=== PATIENT | male | born 1955 | race Caucasian/White ===

== ENCOUNTER 2020-04-29 14:45 | Emergency (ER) | payer OTHER ==
[~2020-04-29] VITALS: Ht 177.8 cm; Wt 127.9 kg
[~2020-04-29 14:45] MED LIST: LEVSOD100; LEVSOD125 PO; LISINOPRIL PO; Lasix20 MG PO; MAGNESIUM PO; MECL25 PO; METO2.5 PO; POTCHL20ER PO; SIMV40 PO
[2020-04-29 15:32] LABS: BASOPHILS ABSOLUTE AUTO 0.09 K/mm3 (0.00-0.23); BASOPHILS PERCENT AUTO 1 % (0-2); EOSINOPHILS ABSOLUTE AUTO 0.22 K/mm3 (0.00-0.68); EOSINOPHILS PERCENT AUTO 3 % (0-6); Hematocrit 49.5 % (37.0-53.0); Hemoglobin 16.9 g/dL (13.5-17.5); IMMATURE GRAN ABSOLUTE AUTO 0.02 K/mm3 (0.00-0.10); IMMATURE GRAN PERCENT AUTO 0 % (0-1); LYMPHOCYTES ABSOLUTE AUTO 2.17 K/mm3 (0.84-5.20); LYMPHOCYTES PERCENT AUTO 25 % (21-46); MONOCYTES ABSOLUTE AUTO 0.86 K/mm3 (0.16-1.47); MONOCYTES PERCENT AUTO 10 % (4-13); Mean Corpuscular HGB Conc 34.1 g/dL (31.5-36.5); Mean Corpuscular Volume 94 fL (80-100); Mean Platelet Volume 9.7 fL (9.1-12.4); NEUTROPHILS ABSOLUTE AUTO 5.49 K/mm3 (1.96-9.15); NEUTROPHILS PERCENT AUTO 62 % (41-73); Platelet Count 239 K/mm3 (150-400); RDW Coefficient Variation 12.7 % (11.7-14.2); RDW Standard Deviation 43.9 fL (35.1-46.3); Red Blood Cell Count 5.28 M/mm3 (4.30-5.90); White Blood Cell Count 8.85 K/mm3 (4.00-11.30)
[2020-04-29 15:48] LABS: Alanine Aminotransfer (ALT/SGP 52 U/L (12-78); Albumin, Blood 3.2 g/dL (3.4-5.0); Albumin/Globulin Ratio 0.6 (0.8-1.8); Alk Phos 135 U/L (50-136); Anion Gap 5 mmol/L (6-16); Aspartate Aminotrans (AST/SGOT 55 U/L (12-37); Bilirubin, Total 1.1 mg/dL (0.1-1.0); Blood Urea Nitrogen 20 mg/dL (8-24); Bun/Creatinine Ratio 15.9 (12.0-20.0); CO2, Blood 29 mmol/L (21-32); Chloride, Blood 105 mmol/L (98-108); Creatinine, Blood 1.26 mg/dL (0.60-1.20); Glomerular Filtration Rate >60 (60-); Glucose, Blood 97 mg/dL (70-99); Magnesium, Blood 2.2 mg/dL (1.6-2.4); Potassium, Blood 4.3 mmol/L (3.5-5.5); Sodium, Blood 139 mmol/L (136-145); Total Protein, Blood 8.2 g/dL (6.4-8.2)
== END 2020-04-29 16:48 | disposition home or self-care (01) ==
LOC: ER 14:45
PROVIDERS: Emergency Medicine
DX: I48.92 Unspecified atrial flutter (principal); K62.5 Hemorrhage of anus and rectum; Z79.899 Other long term (current) drug therapy
CPT/HCPCS: 36415; 80053; 83735; 85025; 93005; 93010; 99284-25

== ENCOUNTER 2020-05-04 04:16 | Inpatient (IN) | payer OTHER, MEDICARE ==
[~2020-05-04] VITALS: Ht 177.8 cm; Wt 130.0 kg
[2020-05-04] MEDS ORDERED: Colace100 MG PO (04:40)
[2020-05-04] MEDS ORDERED: ATEN25 PO (04:40)
[2020-05-04] MEDS ORDERED: ZESTRIL40 M1 PO (04:40)
[2020-05-04 04:41] LABS: BASOPHILS ABSOLUTE AUTO 0.05 K/mm3 (0.00-0.23); BASOPHILS PERCENT AUTO 1 % (0-2); EOSINOPHILS ABSOLUTE AUTO 0.29 K/mm3 (0.00-0.68); EOSINOPHILS PERCENT AUTO 3 % (0-6); Hematocrit 45.7 % (37.0-53.0); Hemoglobin 15.1 g/dL (13.5-17.5); IMMATURE GRAN ABSOLUTE AUTO 0.04 K/mm3 (0.00-0.10); IMMATURE GRAN PERCENT AUTO 0 % (0-1); LYMPHOCYTES ABSOLUTE AUTO 2.52 K/mm3 (0.84-5.20); LYMPHOCYTES PERCENT AUTO 27 % (21-46); MONOCYTES ABSOLUTE AUTO 0.94 K/mm3 (0.16-1.47); MONOCYTES PERCENT AUTO 10 % (4-13); Mean Corpuscular Volume 97 fL (80-100); Mean Platelet Volume 9.6 fL (9.1-12.4); NEUTROPHILS ABSOLUTE AUTO 5.54 K/mm3 (1.96-9.15); NEUTROPHILS PERCENT AUTO 59 % (41-73); Platelet Count 204 K/mm3 (150-400); RDW Coefficient Variation 13.3 % (11.7-14.2); RDW Standard Deviation 47.8 fL (35.1-46.3); Red Blood Cell Count 4.72 M/mm3 (4.30-5.90); White Blood Cell Count 9.38 K/mm3 (4.00-11.30)
[2020-05-04] MEDS ORDERED: XARELTO20 MG PO (04:41)
[2020-05-04] MEDS ORDERED: LEVOTHYROXINE112 MC3 PO (04:41)
[2020-05-04] MEDS ORDERED: POTCHL20ER PO (04:41)
[2020-05-04] MEDS ORDERED: ATOR40TA PO (04:42)
[2020-05-04] MEDS ORDERED: FURO40 PO (04:42)
[2020-05-04] MEDS ORDERED: THERA-D2000 UNIT PO (04:43)
[2020-05-04] MEDS ORDERED: FISH OIL 1,2001 EAC1 PO (04:43)
[2020-05-04 05:05] LABS: Free Thyroxine 1.02 ng/dL (0.70-1.60); Troponin I 0.019 ng/mL (0.000-0.040)
[2020-05-04 05:06] LABS: Albumin, Blood 3.2 g/dL (3.4-5.0); Albumin/Globulin Ratio 0.7 (0.8-1.8); Bilirubin, Total 1.3 mg/dL (0.1-1.0); Bun/Creatinine Ratio 15.4 (12.0-20.0); Creatinine, Blood 2.28 mg/dL (0.60-1.20); Globulin, Blood 4.7 g/dL (2.2-4.0); Potassium, Blood 4.1 mmol/L (3.5-5.5); Total Protein, Blood 7.9 g/dL (6.4-8.2)
[2020-05-04 05:09] LABS: Triiodothyronine, Free 1.28 pg/mL (2.18-3.98)
[2020-05-04 05:10] LABS: Thyroid Stimulating Hormone 1.85 uIU/mL (0.360-4.800)
[2020-05-04 06:27] LABS: Source, Urine Voided
[2020-05-04 06:32] LABS: Appearance, Urine Clear (Clear); Bilirubin, Urine Neg (Neg); Blood, Urine 1+ (Neg); Color, Urine Yellow (P-Yellow); Glucose Qualitative, Urine Neg (Neg); Ketones, Urine Neg (Neg); Leukocyte Esterase, Urine 1+ (Neg); Nitrite, Urine Neg (Neg); Protein, Urine 3+ (Neg); Urobilinogen, Urine NORM (Normal)
[2020-05-04 06:44] LABS: Bacteria Few /hpf; Red Blood Cells, Urine 0-2 /hpf (0-2); Squamous Epithelial Cells Rare /hpf (Few)
--- NOTE | 2020-05-04 09:58 | NUR ---
Echocardiogram completed.
[2020-05-04] MEDS ORDERED: Aspirin EC81 MG PO (17:36)
[2020-05-05 04:12] LABS: BASOPHILS ABSOLUTE AUTO 0.04 K/mm3 (0.00-0.23); BASOPHILS PERCENT AUTO 0 % (0-2); EOSINOPHILS ABSOLUTE AUTO 0.11 K/mm3 (0.00-0.68); EOSINOPHILS PERCENT AUTO 1 % (0-6); Hematocrit 40.8 % (37.0-53.0); Hemoglobin 13.4 g/dL (13.5-17.5); IMMATURE GRAN ABSOLUTE AUTO 0.04 K/mm3 (0.00-0.10); IMMATURE GRAN PERCENT AUTO 0 % (0-1); LYMPHOCYTES ABSOLUTE AUTO 1.43 K/mm3 (0.84-5.20); LYMPHOCYTES PERCENT AUTO 16 % (21-46); MONOCYTES ABSOLUTE AUTO 0.92 K/mm3 (0.16-1.47); MONOCYTES PERCENT AUTO 10 % (4-13); Mean Corpuscular HGB 31.4 pg (26.0-34.0); Mean Corpuscular HGB Conc 32.8 g/dL (31.5-36.5); Mean Corpuscular Volume 96 fL (80-100); Mean Platelet Volume 9.9 fL (9.1-12.4); NEUTROPHILS ABSOLUTE AUTO 6.62 K/mm3 (1.96-9.15); NEUTROPHILS PERCENT AUTO 72 % (41-73); Platelet Count 181 K/mm3 (150-400); RDW Coefficient Variation 13.3 % (11.7-14.2); RDW Standard Deviation 47.2 fL (35.1-46.3); Red Blood Cell Count 4.27 M/mm3 (4.30-5.90); White Blood Cell Count 9.16 K/mm3 (4.00-11.30)
[2020-05-05 04:48] LABS: Albumin, Blood 2.7 g/dL (3.4-5.0); Albumin/Globulin Ratio 0.7 (0.8-1.8); Bilirubin, Total 1.6 mg/dL (0.1-1.0); Bun/Creatinine Ratio 18.1 (12.0-20.0); Calcium, Blood 8.6 mg/dL (8.5-10.1); Creatinine, Blood 1.66 mg/dL (0.60-1.20); Potassium, Blood 4.6 mmol/L (3.5-5.5); Total Protein, Blood 6.7 g/dL (6.4-8.2)
--- NOTE | 2020-05-05 07:44 | NUR ---
SHIFT SUMMARY START OF SHIFT PT WAS VERY ANXIOUS AND SOB. PT WAS PLACED ON 2LPM VIA NC AND TRANSFERRED TO RECLINER CHAIR. PT STATED HE WAS UNABLE TO LAY FLAT OR GET COMFORTABLE IN THE BED DUE TO INCREASED DIFFICULTY BREATHING AND CHEST TIGHTENING. PT BEGAN TO RELAX ONCE COMFORTABLE IN RECLINER AND PUT ON HOME CPAP. SOB DECREASED AND PT'S ANXIETY DECREASED. O2 SATS FELL TO ABOUT 85% AT THE LOWEST AND QUICKLY RETURNED TO LOW 90'S WHEN ON O2. BP WAS ELEVATED WHEN PT WAS ANXIOUS UP TO 143 SYSTOLIC AND AROUND 100 SYSTOLIC T/O THE REST OF THE SHIFT. HR WAS 50'S TO 60'S. PT SLEPT MOST OF THE NIGHT.
--- NOTE | 2020-05-05 14:32 | NUR ---
partial echocardiogram complete
[2020-05-05 16:24] LABS: Phosphorus, Blood 3.6 mg/dL (2.5-4.9)
[2020-05-05 17:27] LABS: Influenza A, PCR NEGATIVE (NEGATIVE); Influenza B, PCR NEGATIVE (NEGATIVE); Resp Syncytial Virus, PCR NEGATIVE (NEGATIVE); SARS-Cov-2 (COVID-19) PCR, MMC NEGATIVE (NEGATIVE)
--- NOTE | 2020-05-05 18:18 | NUR ---
SHIFT SUMMARY PT A&Ox4; CALM AND COOPERATIVE WITH CARE. PT UP IN CHAIR FOR MAJORITY OF SHIFT. PT DENIES PAIN, CHEST PAIN, NAUSEA, AND DIZZINESS. PT HAD EPISODE OF COUGHING AND RESPIRATORY DISTRESS; PLACED ON 3L O2 VIA NC; DR SINGH NOTED; TITRARATED TO RA. SOB WITH EXERTIONS. MULLINS REMOVED; PT HAS VOIDED POST MULLINS REMOVAL . PT CONVERTED IN AND OUT OF AFIB; DR PAZ NOTIFIED. LOW GRADE FEVER NOTED. OTHER VSS. NO OTHER ACUTE CHANGES NOTED. WILL CONTINUE TO MONITOR UNTIL REPORT GIVEN TO ONCOMING RN.
--- NOTE | 2020-05-05 20:00 | NUR ---
PT REPORTS A MILD HEADACHE - DECLINED TYLENOL. PT REPORTS DIZZY/LIGHTHEADED WHEN UP - EDUCATED ON USE OF CALL LIGHT, AND PLACED URINAL AT BEDSIDE. PT IS CURRENTLY RESTING IN THE CHAIR. CONTINUOUS BIOX IN PLACE - SATS WNL. PT IS IN AFIB. PT IS REQUESTING A NICOTINE PATCH TONIGHT - SEE EMAR FOR FOLLOW UP. PT REPORTS SOB WITH EXERTION. PT DENIES ANY CHEST PAIN/DISCOMFORT. FLUIDS AT BEDSIDE.
--- NOTE | 2020-05-05 23:20 | NUR ---
VERIFIED WITH PT - OKAY TO TALK WITH SISTER NERI - PROVIDED UPDATE TO HER VIA TELEPHONE. CALL LIGHT IS WITHIN REACH. PT IS IN RECLINER CHAIR - DENIES ANY NEEDS, OTHER THAN NEEDING TO USE THE URINAL - REQUESTING PRIVACY. PT DENIED FEELING DIZZY/LIGHTHEADED AT THIS TIME.
[2020-05-06 04:09] LABS: BASOPHILS ABSOLUTE AUTO 0.05 K/mm3 (0.00-0.23); BASOPHILS PERCENT AUTO 1 % (0-2); EOSINOPHILS ABSOLUTE AUTO 0.17 K/mm3 (0.00-0.68); EOSINOPHILS PERCENT AUTO 2 % (0-6); Hemoglobin 13.9 g/dL (13.5-17.5); IMMATURE GRAN ABSOLUTE AUTO 0.04 K/mm3 (0.00-0.10); IMMATURE GRAN PERCENT AUTO 1 % (0-1); LYMPHOCYTES ABSOLUTE AUTO 1.55 K/mm3 (0.84-5.20); LYMPHOCYTES PERCENT AUTO 18 % (21-46); MONOCYTES PERCENT AUTO 11 % (4-13); Mean Corpuscular HGB Conc 33.1 g/dL (31.5-36.5); Mean Corpuscular Volume 97 fL (80-100); Mean Platelet Volume 10.2 fL (9.1-12.4); NEUTROPHILS ABSOLUTE AUTO 5.93 K/mm3 (1.96-9.15); NEUTROPHILS PERCENT AUTO 68 % (41-73); Platelet Count 174 K/mm3 (150-400); RDW Coefficient Variation 13.2 % (11.7-14.2); RDW Standard Deviation 47.3 fL (35.1-46.3); Red Blood Cell Count 4.35 M/mm3 (4.30-5.90); White Blood Cell Count 8.74 K/mm3 (4.00-11.30)
[2020-05-06 04:31] LABS: Calcium, Blood 9.1 mg/dL (8.5-10.1); Creatinine, Blood 1.4 mg/dL (0.60-1.20); Potassium, Blood 4.6 mmol/L (3.5-5.5)
--- NOTE | 2020-05-06 05:15 | NUR ---
SHIFT SUMMARY - PT SLEPT IN RECLINER CHAIR WITH HOME CPAP IN PLACE - SLEPT FOR APPX 6-7 HOURS TONIGHT. PT'S HEART RHYTHM WENT FROM AFIB WITH OCCASIONAL SINUS BEATS AT THE BEGINNING OF THE SHIFT TO NSR THROUGHOUT MOST OF THE REMAINDER OF THIS SHIFT. SIRIA TAYLOR REPORTS OCCASIONAL SINUS IMTIAZ - LOW TO MID 50'S. PT HAS BEEN COOPERATIVE WITH CARE, AND HAS USED THE CALL LIGHT APPROPRIATELY. TEA COLORED URINE THIS AM. PT DENIED ANY PAIN OR CHEST DISCOMFORT THROUGHOUT THE NIGHT. CALL LIGHT WITHIN REACH. BED IN LOW POSITION. FLUIDS AT BEDSIDE.
[2020-05-06 15:12] LABS: Magnesium, Blood 1.8 mg/dL (1.6-2.4); Phosphorus, Blood 3.3 mg/dL (2.5-4.9)
--- NOTE | 2020-05-06 18:20 | NUR ---
SHIFT SUMMARY PT A&Ox4; CALM AND COOPERATIVE WITH CARE. ANXIOUS AT TIMES THIS EVENING, USED THERAPUTIC LISTENING AND EDUCATED PT ON BREATHING TECHNIQUES. PT DENIES PAIN, CHEST PAIN, NAUSEA SOB AND DIZZINESS. HR 50-60'S T/O SHIFT. BP STABLE. OTHER VSS. DR QUACH AT BEDSIDE THIS EVENING, PLANS FOR BOWEL PREP AND COLONOSCOPY. OTHER VSS. NO OTHER ACUTE CHANGES NOTED DURING SHIFT. WILL CONTINUE TO MONITOR UNTIL REPORT GIVEN TO ONCOMING RN.
--- NOTE | 2020-05-06 23:18 | NUR ---
FAMILY CALLED PT'S SISTER, NERI, CALLED FOR UPDATE. UPDATED SISTER ON VITAL SIGNS AND OVERALL HOW PT IS FEELING, PT DENIES PAIN, ETC. PT SISTER STATES SHE WILL NOT BE IN TOMORROW BUT PT'S OTHER SISTER WILL BE.
[2020-05-07 04:18] LABS: BASOPHILS ABSOLUTE AUTO 0.05 K/mm3 (0.00-0.23); BASOPHILS PERCENT AUTO 1 % (0-2); EOSINOPHILS ABSOLUTE AUTO 0.33 K/mm3 (0.00-0.68); EOSINOPHILS PERCENT AUTO 4 % (0-6); Hematocrit 39.6 % (37.0-53.0); Hemoglobin 13.2 g/dL (13.5-17.5); IMMATURE GRAN ABSOLUTE AUTO 0.04 K/mm3 (0.00-0.10); IMMATURE GRAN PERCENT AUTO 1 % (0-1); LYMPHOCYTES PERCENT AUTO 21 % (21-46); MONOCYTES ABSOLUTE AUTO 0.91 K/mm3 (0.16-1.47); MONOCYTES PERCENT AUTO 11 % (4-13); Mean Corpuscular HGB 31.4 pg (26.0-34.0); Mean Corpuscular HGB Conc 33.3 g/dL (31.5-36.5); Mean Corpuscular Volume 94 fL (80-100); Mean Platelet Volume 9.8 fL (9.1-12.4); NEUTROPHILS ABSOLUTE AUTO 5.08 K/mm3 (1.96-9.15); NEUTROPHILS PERCENT AUTO 63 % (41-73); Platelet Count 180 K/mm3 (150-400); RDW Coefficient Variation 12.8 % (11.7-14.2); RDW Standard Deviation 44.6 fL (35.1-46.3); Red Blood Cell Count 4.21 M/mm3 (4.30-5.90); White Blood Cell Count 8.11 K/mm3 (4.00-11.30)
[2020-05-07 04:36] LABS: Anion Gap 6 mmol/L (6-16); Blood Urea Nitrogen 19 mg/dL (8-24); Bun/Creatinine Ratio 15.1 (12.0-20.0); CO2, Blood 26 mmol/L (21-32); Calcium, Blood 8.5 mg/dL (8.5-10.1); Chloride, Blood 103 mmol/L (98-108); Creatinine, Blood 1.26 mg/dL (0.60-1.20); Glomerular Filtration Rate >60 (60-); Glucose, Blood 90 mg/dL (70-99); Potassium, Blood 3.8 mmol/L (3.5-5.5); Sodium, Blood 135 mmol/L (136-145)
--- NOTE | 2020-05-07 06:26 | NUR ---
SHIFT SUMMARY NO ACUTE CHANGES THIS SHIFT. PT A&OX4. SP02>90% ON RA, WORE CPAP WHILE SLEEPING. TELEMETRY READS SR. TOWARDS END OF SHIFT, PT CONVERTED BETWEEN A FLUTTER AND SR. HR LOW WAS 45 DURING SHIFT. PT USED URINAL AT BEDSIDE. PT DENIED PAIN. PT SLEPT IN RECLINER MOST OF SHIFT. USES CALL LIGHT APPROPRIATELY. CALL LIGHT IN REACH. PT IN NO DISTRESS AT TIME OF THIS NOTE.
--- NOTE | 2020-05-07 13:50 | NUR ---
CARE COORDINATION REFERRAL - ADMIT: 05/04/20 DISCHARGE: DX: SYMPTPMATIC BRADYCARDIA CC: HARDEEP CALL: RESIDENCE: HOME WITH SPOUSE CAREGIVER: ROHAN LYNN, SPOUSE / PARTNER, DX: HTN, GRAVES' DISEASE, HYPOTHYROIDISM, DM, SLEEP APNEA, SEE LIST DME: BP CUFF, AUTO-PAP EQUIPMENT, AUTO CPAP CCM: NONE HOME HEALTH: NONE SUMMARY: ADMIT: 05/04/20 05/05/20- PER CHART REVIEW WITH DR. SINGH. PT USED HOME CPAP MACHINE LAST NIGHT AND TOLERATED THIS WELL. PT CURRENTLY ON 2L OF OXYGEN. HE HAS HAD A LOW-GRADE TEMP ALL-DAY. KIDNEY FUNCTION IS IMPROVING.POTENTIALLY DISCHARGE EITHER MON OR . -KJW 05/04/20- PER CHART REVIEW WITH DR. SINGH, PT IS WAITING FOR ROOM IN HOSPITAL. HE WILL NEED TO BE ADMITTED FOR A FEW DAYS -KJ
--- NOTE | 2020-05-07 18:15 | NUR ---
SHIFT SUMMARY: PT ALERT AND ORIENTED X4. ON ROOM AIR SATING ABOVE 92%. TELE SHOWING SINUS RHYTHM WITH HR 50'S. DENIES ANY CHEST PAIN. VITAL SIGNS STABLE. NO ACUTE CHANGES. PT IN RECLINER MOST OF THE AFTERNOON AND WAS ABLE TO GO ON A WALK. SISTER IN TO SEE PT. BOWEL MOVEMENTS LOOSE THROUGHOUT THE DAY, NO SIGNS OF BLEEDING. PT STATES HE IS "FEELING GOOD". PLAN FOR COLONOSCOPY TOMORROW WITH BOWEL PREP PRIOR. WILL CONTINUE TO MONITOR AND REPORT OFF.
[2020-05-08 04:00] LABS: BASOPHILS ABSOLUTE AUTO 0.08 K/mm3 (0.00-0.23); BASOPHILS PERCENT AUTO 1 % (0-2); EOSINOPHILS ABSOLUTE AUTO 0.38 K/mm3 (0.00-0.68); EOSINOPHILS PERCENT AUTO 6 % (0-6); Hematocrit 41.7 % (37.0-53.0); Hemoglobin 13.9 g/dL (13.5-17.5); IMMATURE GRAN ABSOLUTE AUTO 0.03 K/mm3 (0.00-0.10); IMMATURE GRAN PERCENT AUTO 0 % (0-1); LYMPHOCYTES ABSOLUTE AUTO 1.54 K/mm3 (0.84-5.20); LYMPHOCYTES PERCENT AUTO 22 % (21-46); MONOCYTES ABSOLUTE AUTO 0.85 K/mm3 (0.16-1.47); MONOCYTES PERCENT AUTO 12 % (4-13); Mean Corpuscular HGB 31.7 pg (26.0-34.0); Mean Corpuscular HGB Conc 33.3 g/dL (31.5-36.5); Mean Corpuscular Volume 95 fL (80-100); Mean Platelet Volume 9.6 fL (9.1-12.4); NEUTROPHILS ABSOLUTE AUTO 4.08 K/mm3 (1.96-9.15); NEUTROPHILS PERCENT AUTO 59 % (41-73); Platelet Count 195 K/mm3 (150-400); RDW Coefficient Variation 12.9 % (11.7-14.2); RDW Standard Deviation 45.5 fL (35.1-46.3); Red Blood Cell Count 4.38 M/mm3 (4.30-5.90); White Blood Cell Count 6.96 K/mm3 (4.00-11.30)
[2020-05-08 04:20] LABS: Anion Gap 5 mmol/L (6-16); Blood Urea Nitrogen 15 mg/dL (8-24); Bun/Creatinine Ratio 12.3 (12.0-20.0); CO2, Blood 28 mmol/L (21-32); Calcium, Blood 8.7 mg/dL (8.5-10.1); Chloride, Blood 104 mmol/L (98-108); Creatinine, Blood 1.22 mg/dL (0.60-1.20); Glomerular Filtration Rate >60 (60-); Glucose, Blood 86 mg/dL (70-99); Potassium, Blood 4.3 mmol/L (3.5-5.5); Sodium, Blood 137 mmol/L (136-145)
--- NOTE | 2020-05-08 06:28 | NUR ---
SHIFT SUMMARY NO ACUTE CHANGES THIS SHIFT. PT A&OX4. SP02>90% ON RA. PT WORE CPAP W/ 2L BLEED IN WHILE SLEEPING. TELEMETRY REAEDS AFIB/SR DURING SHIFT. PT DNEIES PAIN. PT SLEPT IN RECLINER. PT'S SISTER, NERI, CALLED FOR UPDATE THIS EVENING. PT USED URINAL AT BEDSIDE. PT WAS ABLE TO SHOWER AT BEGINNING OF SHIFT. PT STARTED GOLYTLY THIS AM FOR AFTERNOON PROCEDURES. DR. PAZ IN THIS AM TO SEE PT. CALL LIGHT IN REACH. WILL GIVE REPORT TO ONCOMING NURSE.
--- NOTE | 2020-05-08 14:44 | NUR ---
PT TO PROCEDURE VIA STRETCHER.
--- NOTE | 2020-05-08 15:17 | NUR ---
05/08/20 1517 Delisa Hough History, Chart, Medications and Allergies reviewed before start of procedure.Patient confirms NPO status and agrees with scheduled surgery.Patient states colon prep results clear. MAC CASE WITH DR. CROOKS.
--- NOTE | 2020-05-08 16:53 | NUR ---
PT BACK FROM PROCEDURE. ALERT AND ORIENTED X4. PT STATES HE IS FEELING TIRED. VITAL SIGNS STABLE. TYLENOL PROVIDED FOR HEADACHE. ON 3 L O2 SATING ABOVE 92%. SISTER PRESENT IN ROOM. TELE SHOWING AFIB WITH HR IN THE 90'S. WILL CONTINUE TO MONITOR.
--- NOTE | 2020-05-08 18:19 | NUR ---
SHIFT SUMMARY: PT ALERT AND ORIENTED X4. ON 1 L O2 POST UPPER AND LOWER COLONOSCOPY. BASELINE IS ROOM AIR. TITRATING DOWN. TELE SHOWING AFIB WITH HR 100-110'S. VITAL SIGNS REMAIN STABLE. BLE EXTREMITY EDMEA. HOME LASIX RESTARTED THIS EVENING. PT SISTER IN ROOM VISITING. USING CALL LIGHT APPROPRIALY. UP IN ROOM TO USE BATHROOM AND URINAL. RESTING IN RECLINER MOST OF THE DAY. SLEEPING ON AND OFF. ATE FULL DINNER. COMPLAINED OF DRY EYES THIS EVENING AND ARTIFICIAL TEARS ORDERED. BED REMAINED IN LOW LOCKED POSITION. WILL CONTINUE TO MONITOR PT AND REPORT OFF.
--- NOTE | 2020-05-09 04:29 | NUR ---
SHIFT SUMMARY PT WAS IN A RECLINER CHAIR T/O THE NIGHT WITH LEGS ELEVATED. PT IS INDEPENDENT IN ROOM ABLE TO AMBULATE. VITALS WERE STABLE. BP 110'S SYSTOLIC. HR 50-60'S IN SINUS RHYTHM, NO AFIB THIS SHIFT. O2 SATS >90% ON ROOM AIR. PT HAD CPAP ON T/O THE NIGHT WHILE SLEEPING WITH O2 BLEED-IN. PT STATES LEGS ARE MORE EDEMATOUS THAN PREVIOUS DAY. PT HAD A VERY QUIET UNEVENTFUL NIGHT.
--- NOTE | 2020-05-09 10:20 | NUR ---
MORNING UPDATE, ASSUMED CARE FROM NOC RN PT WAS SLEEPING DURING MORNING REPORT BUT SOON WOKE AFTER FOR MEDICATIONS AND BREAKFAST WELL A VISIT WITH DR. PAZ. DR. PAZ STATED SHE WOULD CLEAR HIM FOR DISCHARGE AND THAT A ZOI PATCH WOULD NEED TO BE PLACED PRIOR TO LEAVING SO HE COULD BE MONITORED FROM HOME. DR. SINGH CONFIRMED OVER THE PHONE THAT HE WOULD BE DISCHARGING THE PT THIS AFTERNOON AND DAMIAN PERAZA COULD GET THE ZOI PATCH PLACEMENT PROCESS STARTED. PT IS RESTING IN HIS CHAIR AT THIS TIME
[2020-05-09] MEDS ORDERED: Nicoderm Cq1 EACH TOP (12:47)
[2020-05-09] MEDS ORDERED: PANT40 PO (12:47)
[2020-05-09] MEDS ORDERED: XARELTO20 MG PO (12:49)
--- NOTE | 2020-05-09 13:53 | NUR ---
DISCHARGE PT HAS BEEN DISCHARGED AND INSTRUCTED TO FOLLOW UP WITH [facility] AND WITH CARDIOLOGY OUTPATIENT. PT HAS BEEN GIVEN A ZIO PATCH THAT WAS PLACED BY [facility]. PT RECEIVED A SHOWER BEFORE THE PATCH WAS PLACED HE HAS BEEN INSTRUCTED NOT TO SHOWER FOR 24 HRS. PT IS TO WEAR THE PATCH FOR 14 DAYS. PT HAS BEEN STARTED ON XARELTO AND WAS GIVEN EDUCATION AND A VENDOR COUPON FOR THE MEDICATION. PT ALSO RECEIVED EDUCATION IN REGARDS TO OTHER NEW MEDS AND TO STOP TAKING THE ATENOLOL. PT AGREED AND WILL BE ESCORTED TO MEET HIS RIDE VIA WHEELCHAIR ACCOMPANIED BY THE [employer] OR WORK DISPATCHER
--- NOTE | 2020-05-11 19:01 | NUR ---
ADMIT: 05/04/20 DISCHARGE:05/09/20 DX: Symptpmatic bradycardia CC: HARDEEP CALL: pt at [phone]- no follow up timeline indicated by pcp at discharge. cp RESIDENCE: Home with spouse CAREGIVER: Susanna Beltran, Spouse / Partner, DX: HTN, Graves' disease, hypothyroidism, DM, sleep apnea, see list DME: BP cuff, auto-pap equipment, auto CPAP CCM: none HOME HEALTH: none SUMMARY: Admit: 05/04/20 05/09/20 discharge home. no follow up guidlines noted for efm follow up. cp 05/09/20 Provider/ Tony Betancourt Specialty/ PHYSICIANS ASSISTANT DEPARTMENT MANAGER Purpose: hospital follow up Location: [address] [address] Comment: Stan will call you to make a follow up appointment Provider/ Jeanette Masterson MD Specialty/ CARDIOLOGY Purpose: follow up for zio patch When: as instructed Location: [address] [facility] [address] Comment: Call the office after 2 weeks to set up for the follow up appointment
== END 2020-05-09 14:30 | disposition home or self-care (01) | DRG 871 ==
LOC: ER 04:16 → PCU 05:21 → ERHOLD 05:21 → PCU 17:02
PROVIDERS: Emergency Medicine; Internal Medicine; Internal Medicine Cardiovascular Disease; Internal Medicine Gastroenterology; ADMIT Internal Medicine
PROC: 5A09357 Assistance with Respiratory Ventilation, Less than 24 Consecutive Hours, Continuous Positive Airway Pressure (ICD-10-PCS; 2020-05-05)
PROC: 0DJ08ZZ Inspection of Upper Intestinal Tract, Via Natural or Artificial Opening Endoscopic (ICD-10-PCS; principal; 2020-05-08 14:30)
PROC: 0W3P8ZZ Control Bleeding in Gastrointestinal Tract, Via Natural or Artificial Opening Endoscopic (ICD-10-PCS; 2020-05-08 14:30)
DX: A40.8 Other streptococcal sepsis (principal); K55.21 Angiodysplasia of colon with hemorrhage; N39.0 Urinary tract infection, site not specified; N17.9 Acute kidney failure, unspecified; J98.11 Atelectasis; Z68.41 Body mass index [BMI] 40.0-44.9, adult; I13.0 Hypertensive heart and chronic kidney disease with heart failure and stage 1 through stage 4 chronic kidney disease, or unspecified chronic kidney disease; Z20.822 Contact with and (suspected) exposure to COVID-19; K64.8 Other hemorrhoids; F10.10 Alcohol abuse, uncomplicated; E66.01 Morbid (severe) obesity due to excess calories; Z66 Do not resuscitate; E86.0 Dehydration; K59.09 Other constipation; I34.0 Nonrheumatic mitral (valve) insufficiency; F17.220 Nicotine dependence, chewing tobacco, uncomplicated; R00.1 Bradycardia, unspecified; I50.9 Heart failure, unspecified; N18.30 Chronic kidney disease, stage 3 unspecified; E78.5 Hyperlipidemia, unspecified; I48.0 Paroxysmal atrial fibrillation; E89.0 Postprocedural hypothyroidism; E05.00 Thyrotoxicosis with diffuse goiter without thyrotoxic crisis or storm; Z88.2 Allergy status to sulfonamides; Z79.899 Other long term (current) drug therapy; Z79.01 Long term (current) use of anticoagulants
CPT/HCPCS: 0241U; 36415; 51702; 71045; 76770; 80048; 80053; 81001; 83735; 83880; 84100; 84145; 84439; 84443; 84481; 84484; 85025; 87040; 87086; 87147; 93005; 93010; 93246; 93306; 93308; 93321; 94667; 94762; 99285-25; A9270; J1650; J2704; J7030; J7120

== ENCOUNTER 2020-05-24 16:41 | Emergency (ER) | payer OTHER ==
[~2020-05-24] VITALS: Ht 177.8 cm; Wt 130.6 kg
[~2020-05-24 16:41] MED LIST changes: +ATEN25 PO; +ATOR40TA PO; +Aspirin EC81 MG PO; +Colace100 MG PO; +FISH OIL 1,2001 EAC1 PO; +FURO40 PO; +LEVOTHYROXINE112 MC3 PO; +Nicoderm Cq1 EACH TOP; +PANT40 PO; +THERA-D2000 UNIT PO; +XARELTO20 MG PO; +ZESTRIL40 M1 PO
[2020-05-24] MEDS ORDERED: METOPROLOL SUCC25 MG PO (16:59)
[2020-05-24 17:21] LABS: BASOPHILS ABSOLUTE AUTO 0.09 K/mm3 (0.00-0.23); BASOPHILS PERCENT AUTO 1 % (0-2); EOSINOPHILS PERCENT AUTO 4 % (0-6); Hematocrit 45.5 % (37.0-53.0); Hemoglobin 15.1 g/dL (13.5-17.5); IMMATURE GRAN ABSOLUTE AUTO 0.05 K/mm3 (0.00-0.10); IMMATURE GRAN PERCENT AUTO 1 % (0-1); LYMPHOCYTES ABSOLUTE AUTO 1.93 K/mm3 (0.84-5.20); LYMPHOCYTES PERCENT AUTO 23 % (21-46); MONOCYTES PERCENT AUTO 10 % (4-13); Mean Corpuscular HGB 31.4 pg (26.0-34.0); Mean Corpuscular HGB Conc 33.2 g/dL (31.5-36.5); Mean Corpuscular Volume 95 fL (80-100); Mean Platelet Volume 9.4 fL (9.1-12.4); NEUTROPHILS ABSOLUTE AUTO 5.13 K/mm3 (1.96-9.15); NEUTROPHILS PERCENT AUTO 62 % (41-73); Platelet Count 243 K/mm3 (150-400); RDW Coefficient Variation 13.2 % (11.7-14.2); RDW Standard Deviation 46.2 fL (35.1-46.3); Red Blood Cell Count 4.81 M/mm3 (4.30-5.90)
[2020-05-24 17:33] LABS: Alanine Aminotransfer (ALT/SGP 60 U/L (12-78); Albumin, Blood 3.1 g/dL (3.4-5.0); Albumin/Globulin Ratio 0.6 (0.8-1.8); Alk Phos 160 U/L (50-136); Anion Gap 5 mmol/L (6-16); Aspartate Aminotrans (AST/SGOT 71 U/L (12-37); Bilirubin, Total 0.9 mg/dL (0.1-1.0); Blood Urea Nitrogen 10 mg/dL (8-24); Bun/Creatinine Ratio 9.6 (12.0-20.0); CO2, Blood 28 mmol/L (21-32); Calcium, Blood 8.4 mg/dL (8.5-10.1); Chloride, Blood 106 mmol/L (98-108); Creatinine, Blood 1.04 mg/dL (0.60-1.20); Globulin, Blood 5.1 g/dL (2.2-4.0); Glomerular Filtration Rate >60 (60-); Glucose, Blood 128 mg/dL (70-99); Potassium, Blood 3.9 mmol/L (3.5-5.5); Sodium, Blood 139 mmol/L (136-145); Total Protein, Blood 8.2 g/dL (6.4-8.2)
[2020-05-24 17:38] LABS: International Normalized Ratio 1.23
== END 2020-05-24 20:19 | disposition home or self-care (01) ==
LOC: ER 16:41
PROVIDERS: Physician Assistant
DX: K92.2 Gastrointestinal hemorrhage, unspecified (principal); Z88.2 Allergy status to sulfonamides; Z79.82 Long term (current) use of aspirin; Z79.01 Long term (current) use of anticoagulants; Z79.899 Other long term (current) drug therapy
CPT/HCPCS: 36415; 80053; 85025; 85610; 85730; 86850; 86900; 86901; 93005; 93010; 99285-25

== ENCOUNTER 2021-05-29 16:26 | Emergency (ER) | payer OTHER ==
[~2021-05-29] VITALS: Ht 175.3 cm; Wt 133.8 kg
[~2021-05-29 16:26] MED LIST changes: +METOPROLOL SUCC25 MG PO
[2021-05-29 17:10] LABS: BASOPHILS ABSOLUTE AUTO 0.07 K/mm3 (0.00-0.23); BASOPHILS PERCENT AUTO 1 % (0-2); EOSINOPHILS ABSOLUTE AUTO 0.26 K/mm3 (0.00-0.68); EOSINOPHILS PERCENT AUTO 4 % (0-6); Hemoglobin 14.9 g/dL (13.5-17.5); IMMATURE GRAN ABSOLUTE AUTO 0.01 K/mm3 (0.00-0.10); IMMATURE GRAN PERCENT AUTO 0 % (0-1); LYMPHOCYTES ABSOLUTE AUTO 1.68 K/mm3 (0.84-5.20); LYMPHOCYTES PERCENT AUTO 29 % (21-46); MONOCYTES PERCENT AUTO 12 % (4-13); Mean Corpuscular HGB 30.1 pg (26.0-34.0); Mean Corpuscular HGB Conc 33.1 g/dL (31.5-36.5); Mean Corpuscular Volume 91 fL (80-100); Mean Platelet Volume 9.6 fL (9.1-12.4); NEUTROPHILS ABSOLUTE AUTO 3.15 K/mm3 (1.96-9.15); NEUTROPHILS PERCENT AUTO 54 % (41-73); Platelet Count 205 K/mm3 (150-400); RDW Coefficient Variation 14.4 % (11.7-14.2); RDW Standard Deviation 48.1 fL (35.1-46.3); Red Blood Cell Count 4.95 M/mm3 (4.30-5.90); White Blood Cell Count 5.87 K/mm3 (4.00-11.30)
[2021-05-29 17:22] LABS: Source, Urine Clean Catch
[2021-05-29 17:46] LABS: Appearance, Urine Bloody (Clear); Bilirubin, Urine Neg (Neg); Blood, Urine 5+ (Neg); Color, Urine Red (P-Yellow); Glucose Qualitative, Urine Neg (Neg); Ketones, Urine Neg (Neg); Leukocyte Esterase, Urine Neg (Neg); Nitrite, Urine Neg (Neg); Protein, Urine 3+ (Neg); Urobilinogen, Urine 1+ (Normal)
[2021-05-29 17:48] LABS: Alanine Aminotransfer (ALT/SGP 44 U/L (12-78); Albumin, Blood 3.1 g/dL (3.4-5.0); Albumin/Globulin Ratio 0.6 (0.8-1.8); Alk Phos 122 U/L (50-136); Anion Gap 4 mmol/L (6-16); Aspartate Aminotrans (AST/SGOT 56 U/L (12-37); Bilirubin, Total 1.2 mg/dL (0.1-1.0); Blood Urea Nitrogen 13 mg/dL (8-24); Bun/Creatinine Ratio 11.5 (12.0-20.0); CO2, Blood 27 mmol/L (21-32); Calcium, Blood 8.8 mg/dL (8.5-10.1); Chloride, Blood 103 mmol/L (98-108); Creatinine, Blood 1.13 mg/dL (0.60-1.20); Globulin, Blood 5.1 g/dL (2.2-4.0); Glomerular Filtration Rate >60 (60-); Glucose, Blood 141 mg/dL (70-99); Magnesium, Blood 1.8 mg/dL (1.6-2.4); Potassium, Blood 3.7 mmol/L (3.5-5.5); Sodium, Blood 134 mmol/L (136-145); Total Protein, Blood 8.2 g/dL (6.4-8.2)
[2021-05-29 17:52] LABS: Red Blood Cells, Urine 50-100 /hpf (0-2); White Blood Cells, Urine 0-2 /hpf (0-5)
[2021-05-29 17:53] LABS: Bacteria Not Seen /hpf; Squamous Epithelial Cells Rare /hpf (Few)
== END 2021-05-29 22:45 | disposition home or self-care (01) ==
LOC: ER 16:26
PROVIDERS: Physician Assistant
DX: R31.9 Hematuria, unspecified (principal); E03.9 Hypothyroidism, unspecified; I48.91 Unspecified atrial fibrillation; I11.0 Hypertensive heart disease with heart failure; I50.9 Heart failure, unspecified; Z88.2 Allergy status to sulfonamides; Z79.899 Other long term (current) drug therapy; F17.220 Nicotine dependence, chewing tobacco, uncomplicated
CPT/HCPCS: 36415; 80053; 81001; 83735; 85025; 99283

== ENCOUNTER → 2021-06-04 | Outpatient (CLI) | payer OTHER ==
[2021-06-04 14:21] LABS: Source, Urine Voided
[2021-06-04 15:13] LABS: Bacteria Not Seen /hpf; Red Blood Cells, Urine 0-2 /hpf (0-2); Squamous Epithelial Cells Few /hpf (Few); White Blood Cells, Urine Rare /hpf (0-5)
== END ==
LOC: LAB SHORT 11:35
PROVIDERS: Physician Assistant
DX: R31.9 Hematuria, unspecified (principal)
CPT/HCPCS: 81015

== ENCOUNTER → 2022-07-25 | Outpatient (CLI) | payer OTHER ==
[2022-07-25 13:18] LABS: BASOPHILS ABSOLUTE AUTO 0.07 K/mm3 (0.00-0.23); BASOPHILS PERCENT AUTO 1 % (0-2); EOSINOPHILS ABSOLUTE AUTO 0.21 K/mm3 (0.00-0.68); EOSINOPHILS PERCENT AUTO 4 % (0-6); Hematocrit 46.8 % (37.0-53.0); Hemoglobin 15.7 g/dL (13.5-17.5); IMMATURE GRAN ABSOLUTE AUTO 0.02 K/mm3 (0.00-0.10); IMMATURE GRAN PERCENT AUTO 0 % (0-1); LYMPHOCYTES ABSOLUTE AUTO 1.48 K/mm3 (0.84-5.20); LYMPHOCYTES PERCENT AUTO 27 % (21-46); MONOCYTES ABSOLUTE AUTO 0.51 K/mm3 (0.16-1.47); MONOCYTES PERCENT AUTO 9 % (4-13); Mean Corpuscular HGB 31.3 pg (26.0-34.0); Mean Corpuscular HGB Conc 33.5 g/dL (31.5-36.5); Mean Corpuscular Volume 93 fL (80-100); Mean Platelet Volume 9.6 fL (9.1-12.4); NEUTROPHILS PERCENT AUTO 58 % (41-73); Platelet Count 187 K/mm3 (150-400); RDW Coefficient Variation 14.7 % (11.7-14.2); RDW Standard Deviation 50.6 fL (35.1-46.3); Red Blood Cell Count 5.02 M/mm3 (4.30-5.90); White Blood Cell Count 5.49 K/mm3 (4.00-11.30)
[2022-07-25 13:28] LABS: Albumin, Blood 3.2 g/dL (3.4-5.0); Albumin/Globulin Ratio 0.6 (0.8-1.8); Bilirubin, Total 1.7 mg/dL (0.1-1.0); Bun/Creatinine Ratio 9.8 (12.0-20.0); Calcium, Blood 8.7 mg/dL (8.5-10.1); Creatinine, Blood 1.32 mg/dL (0.60-1.20); Globulin, Blood 5.3 g/dL (2.2-4.0); Potassium, Blood 3.7 mmol/L (3.5-5.5); Total Protein, Blood 8.5 g/dL (6.4-8.2)
[2022-07-25 13:50] LABS: Free Thyroxine 1.41 ng/dL (0.70-1.60); Thyroid Stimulating Hormone 0.881 uIU/mL (0.360-4.800)
== END | disposition home or self-care (01) ==
LOC: LAB SHORT 13:13 → LAB 13:13
PROVIDERS: Family Medicine
DX: R07.9 Chest pain, unspecified (principal); Z86.39 Personal history of other endocrine, nutritional and metabolic disease
CPT/HCPCS: 80053; 84439; 84443; 84484; 85025

== ENCOUNTER → 2023-08-17 | Outpatient (CLI) | payer OTHER | LOC: LAB 13:44 → LAB SHORT 13:44 | DX: R30.0 Dysuria (principal) | CPT/HCPCS: 87086 ==

== ENCOUNTER → 2024-03-21 | Outpatient (CLI) | payer OTHER ==
[2024-03-21 16:24] LABS: BASOPHILS ABSOLUTE AUTO 0.09 K/mm3 (0.00-0.23); BASOPHILS PERCENT AUTO 1 % (0-2); EOSINOPHILS ABSOLUTE AUTO 0.17 K/mm3 (0.00-0.68); EOSINOPHILS PERCENT AUTO 3 % (0-6); Hematocrit 46.4 % (37.0-53.0); Hemoglobin 15.1 g/dL (13.5-17.5); IMMATURE GRAN ABSOLUTE AUTO 0.03 K/mm3 (0.00-0.10); IMMATURE GRAN PERCENT AUTO 0 % (0-1); LYMPHOCYTES PERCENT AUTO 21 % (21-46); MONOCYTES ABSOLUTE AUTO 0.66 K/mm3 (0.16-1.47); MONOCYTES PERCENT AUTO 10 % (4-13); Mean Corpuscular HGB 29.6 pg (26.0-34.0); Mean Corpuscular HGB Conc 32.5 g/dL (31.5-36.5); Mean Corpuscular Volume 91 fL (80-100); Mean Platelet Volume 9.5 fL (9.1-12.4); NEUTROPHILS ABSOLUTE AUTO 4.47 K/mm3 (1.96-9.15); NEUTROPHILS PERCENT AUTO 66 % (41-73); Platelet Count 168 K/mm3 (150-400); RDW Coefficient Variation 14.8 % (11.7-14.2); RDW Standard Deviation 49.4 fL (35.1-46.3); White Blood Cell Count 6.82 K/mm3 (4.00-11.30)
[2024-03-21 16:40] LABS: Albumin, Blood 3.3 g/dL (3.4-5.0); Albumin/Globulin Ratio 0.6 (0.8-1.8); Bun/Creatinine Ratio 9.4 (12.0-20.0); Calcium, Blood 8.5 mg/dL (8.5-10.1); Creatinine, Blood 1.38 mg/dL (0.60-1.20); Globulin, Blood 5.6 g/dL (2.2-4.0); Magnesium, Blood 1.8 mg/dL (1.6-2.4); Potassium, Blood 3.5 mmol/L (3.5-5.5); Total Protein, Blood 8.9 g/dL (6.4-8.2)
== END ==
LOC: LAB SHORT 16:19 → LAB 16:19
PROVIDERS: Physician Assistant
DX: R07.9 Chest pain, unspecified (principal)
CPT/HCPCS: 80053; 83735; 84484; 85025

== ENCOUNTER 2024-05-03 12:53 | Day surgery (SDC) | payer OTHER ==
[~2024-05-03] VITALS: Ht 175.3 cm; Wt 125.0 kg
[~2024-05-03 12:53] MED LIST changes: +Lactated Ringer's 1,000 ML IV ONE; +Lidocaine 2% 5 ML SDV ONE; +Methylene Blue 1% 100 MG/10 ML VIAL ONE
[2024-05-03] MEDS ORDERED: BUME1 (13:50)
[2024-05-03] MEDS ORDERED: TAMSULOSIN HCL0.4 M1 (13:50)
[2024-05-03] MEDS ORDERED: JARDIANCE10 MG (13:50)
[2024-05-03] MEDS ORDERED: propofoL 50 ML IV ONE (15:00)
[2024-05-03] MEDS ORDERED: Lactated Ringer's 1,000 ML IV ONE (15:08)
[2024-05-03 16:12] VITALS: BP 128/65
== END 2024-05-03 15:45 | disposition home or self-care (01) ==
LOC: ORSCSDS 12:53
PROVIDERS: Internal Medicine Gastroenterology
PROC: 0DJ08ZZ Inspection of Upper Intestinal Tract, Via Natural or Artificial Opening Endoscopic (ICD-10-PCS; principal; 2024-05-03 14:45)
DX: K74.60 Unspecified cirrhosis of liver (principal); B37.81 Candidal esophagitis; E03.9 Hypothyroidism, unspecified; E78.5 Hyperlipidemia, unspecified; G47.33 Obstructive sleep apnea (adult) (pediatric); I48.0 Paroxysmal atrial fibrillation; E11.9 Type 2 diabetes mellitus without complications; E66.9 Obesity, unspecified; Z68.41 Body mass index [BMI] 40.0-44.9, adult; I83.90 Asymptomatic varicose veins of unspecified lower extremity; Z79.01 Long term (current) use of anticoagulants; Z79.899 Other long term (current) drug therapy
CPT/HCPCS: 82947; J2704; J7120; Q9968

== ENCOUNTER 2024-06-12 16:03 | Emergency (ER) | payer OTHER ==
[~2024-06-12] VITALS: Ht 175.3 cm; Wt 133.8 kg
[~2024-06-12 16:03] MED LIST changes: +BUME1; +JARDIANCE10 MG; -Lactated Ringer's 1,000 ML IV ONE; -Lidocaine 2% 5 ML SDV ONE; -Methylene Blue 1% 100 MG/10 ML VIAL ONE; +TAMSULOSIN HCL0.4 M1
[2024-06-12 18:17] LABS: BASOPHILS ABSOLUTE AUTO 0.07 K/mm3 (0.00-0.23); BASOPHILS PERCENT AUTO 1 % (0-2); EOSINOPHILS ABSOLUTE AUTO 0.22 K/mm3 (0.00-0.68); EOSINOPHILS PERCENT AUTO 4 % (0-6); Hematocrit 30.8 % (37.0-53.0); Hemoglobin 9.5 g/dL (13.5-17.5); IMMATURE GRAN ABSOLUTE AUTO 0.03 K/mm3 (0.00-0.10); IMMATURE GRAN PERCENT AUTO 1 % (0-1); LYMPHOCYTES ABSOLUTE AUTO 1.16 K/mm3 (0.84-5.20); LYMPHOCYTES PERCENT AUTO 19 % (21-46); MONOCYTES ABSOLUTE AUTO 0.53 K/mm3 (0.16-1.47); MONOCYTES PERCENT AUTO 9 % (4-13); Mean Corpuscular HGB 28.4 pg (26.0-34.0); Mean Corpuscular HGB Conc 30.8 g/dL (31.5-36.5); Mean Corpuscular Volume 92 fL (80-100); Mean Platelet Volume 9.4 fL (9.1-12.4); NEUTROPHILS ABSOLUTE AUTO 4.23 K/mm3 (1.96-9.15); NEUTROPHILS PERCENT AUTO 68 % (41-73); Platelet Count 191 K/mm3 (150-400); RDW Coefficient Variation 16.3 % (11.7-14.2); RDW Standard Deviation 54.5 fL (35.1-46.3); Red Blood Cell Count 3.35 M/mm3 (4.30-5.90); White Blood Cell Count 6.24 K/mm3 (4.00-11.30)
[2024-06-12 18:37] LABS: Albumin, Blood 2.7 g/dL (3.4-5.0); Albumin/Globulin Ratio 0.6 (0.8-1.8); Bilirubin, Total 1.1 mg/dL (0.1-1.0); Bun/Creatinine Ratio 7.5 (12.0-20.0); Creatinine, Blood 1.06 mg/dL (0.60-1.20); Globulin, Blood 4.7 g/dL (2.2-4.0); Potassium, Blood 3.4 mmol/L (3.5-5.5); Total Protein, Blood 7.4 g/dL (6.4-8.2)
[2024-06-12 23:51] LABS: Hemoglobin 9.5 g/dL (13.5-17.5)
[2024-06-13 00:45] VITALS: BP 136/53
== END 2024-06-13 01:17 | disposition home or self-care (01) ==
LOC: ER 16:03
PROVIDERS: Emergency Medicine; Student in an Organized Health Care Education/Training Program
DX: K92.1 Melena (principal); D64.9 Anemia, unspecified; R73.9 Hyperglycemia, unspecified; E89.0 Postprocedural hypothyroidism; I48.91 Unspecified atrial fibrillation; I11.0 Hypertensive heart disease with heart failure; I50.9 Heart failure, unspecified; K74.60 Unspecified cirrhosis of liver; F17.220 Nicotine dependence, chewing tobacco, uncomplicated; Z88.2 Allergy status to sulfonamides; Z88.8 Allergy status to other drugs, medicaments and biological substances; Z79.84 Long term (current) use of oral hypoglycemic drugs; Z79.890 Hormone replacement therapy; Z79.899 Other long term (current) drug therapy; Z59.89 Other problems related to housing and economic circumstances
CPT/HCPCS: 71046; 80053; 84484; 85014; 85018; 85025; 86850; 86900; 86901; 93005; 93010; 99285-25

== ENCOUNTER → 2024-07-10 | Outpatient (CLI) | payer OTHER ==
[~2024-07-10] MED LIST changes: +ALBU90OI INH; -BUME1; +BUME1 PO; +JARDIANCE10 MG PO; +Kristalose20 GM PO; +TAMS.4ER PO; -THERA-D2000 UNIT PO; +VITAMIN D5000 UNIT PO
[2024-07-10 19:07] LABS: BASOPHILS ABSOLUTE AUTO 0.07 K/mm3 (0.00-0.23); BASOPHILS PERCENT AUTO 1 % (0-2); EOSINOPHILS PERCENT AUTO 4 % (0-6); Hematocrit 26.6 % (37.0-53.0); Hemoglobin 7.9 g/dL (13.5-17.5); IMMATURE GRAN ABSOLUTE AUTO 0.02 K/mm3 (0.00-0.10); IMMATURE GRAN PERCENT AUTO 0 % (0-1); LYMPHOCYTES ABSOLUTE AUTO 1.25 K/mm3 (0.84-5.20); LYMPHOCYTES PERCENT AUTO 22 % (21-46); MONOCYTES ABSOLUTE AUTO 0.65 K/mm3 (0.16-1.47); MONOCYTES PERCENT AUTO 11 % (4-13); Mean Corpuscular HGB 25.6 pg (26.0-34.0); Mean Corpuscular HGB Conc 29.7 g/dL (31.5-36.5); Mean Corpuscular Volume 86 fL (80-100); Mean Platelet Volume 9.6 fL (9.1-12.4); NEUTROPHILS ABSOLUTE AUTO 3.56 K/mm3 (1.96-9.15); NEUTROPHILS PERCENT AUTO 62 % (41-73); NRBC ABSOLUTE 0.03 K/mm3 (0.00-0.02); NRBC Auto 0.5 /100 WBC (0.0-0.2); Platelet Count 229 K/mm3 (150-400); RDW Coefficient Variation 16.7 % (11.7-14.2); RDW Standard Deviation 52.7 fL (35.1-46.3); Red Blood Cell Count 3.09 M/mm3 (4.30-5.90); White Blood Cell Count 5.75 K/mm3 (4.00-11.30)
[2024-07-10 20:19] LABS: Albumin, Blood 2.9 g/dL (3.4-5.0); Albumin/Globulin Ratio 0.6 (0.8-1.8); Bilirubin, Total 1.3 mg/dL (0.1-1.0); Bun/Creatinine Ratio 10.7 (12.0-20.0); Calcium, Blood 8.1 mg/dL (8.5-10.1); Creatinine, Blood 1.4 mg/dL (0.60-1.20); Globulin, Blood 4.9 g/dL (2.2-4.0); Potassium, Blood 3.7 mmol/L (3.5-5.5); Total Protein, Blood 7.8 g/dL (6.4-8.2)
== END | disposition home or self-care (01) ==
LOC: LAB SHORT 19:00 → LAB 19:00
PROVIDERS: Family Medicine
DX: D64.9 Anemia, unspecified (principal); N17.9 Acute kidney failure, unspecified
CPT/HCPCS: 80053; 85025

== ENCOUNTER 2024-07-11 18:23 | Emergency (ER) | payer OTHER ==
[~2024-07-11] VITALS: Ht 177.8 cm; Wt 127.0 kg
[~2024-07-11 18:23] MED LIST changes: -Kristalose20 GM PO
[2024-07-11 18:54] LABS: BASOPHILS ABSOLUTE AUTO 0.08 K/mm3 (0.00-0.23); BASOPHILS PERCENT AUTO 1 % (0-2); EOSINOPHILS ABSOLUTE AUTO 0.17 K/mm3 (0.00-0.68); EOSINOPHILS PERCENT AUTO 3 % (0-6); Hematocrit 26.8 % (37.0-53.0); Hemoglobin 7.7 g/dL (13.5-17.5); IMMATURE GRAN ABSOLUTE AUTO 0.02 K/mm3 (0.00-0.10); IMMATURE GRAN PERCENT AUTO 0 % (0-1); LYMPHOCYTES ABSOLUTE AUTO 1.21 K/mm3 (0.84-5.20); LYMPHOCYTES PERCENT AUTO 20 % (21-46); MONOCYTES ABSOLUTE AUTO 0.65 K/mm3 (0.16-1.47); MONOCYTES PERCENT AUTO 11 % (4-13); Mean Corpuscular HGB Conc 28.7 g/dL (31.5-36.5); Mean Corpuscular Volume 87 fL (80-100); Mean Platelet Volume 10.1 fL (9.1-12.4); NEUTROPHILS ABSOLUTE AUTO 3.81 K/mm3 (1.96-9.15); NEUTROPHILS PERCENT AUTO 64 % (41-73); NRBC ABSOLUTE 0.02 K/mm3 (0.00-0.02); NRBC Auto 0.3 /100 WBC (0.0-0.2); Platelet Count 237 K/mm3 (150-400); RDW Coefficient Variation 16.8 % (11.7-14.2); RDW Standard Deviation 53.3 fL (35.1-46.3); Red Blood Cell Count 3.08 M/mm3 (4.30-5.90); White Blood Cell Count 5.94 K/mm3 (4.00-11.30)
[2024-07-11 19:06] LABS: RETICULOCYTE ABSOLUTE 0.0282 M/mm3 (0.0200-0.1100); RETICULOCYTE COUNT PERCENT 2.71 % (0.50-2.50)
[2024-07-11 19:29] LABS: Albumin, Blood 2.9 g/dL (3.4-5.0); Albumin/Globulin Ratio 0.6 (0.8-1.8); Bun/Creatinine Ratio 11.7 (12.0-20.0); Calcium, Blood 8.6 mg/dL (8.5-10.1); Creatinine, Blood 1.28 mg/dL (0.60-1.20); Globulin, Blood 4.8 g/dL (2.2-4.0); Potassium, Blood 4.1 mmol/L (3.5-5.5); Total Protein, Blood 7.7 g/dL (6.4-8.2)
[2024-07-11] MEDS ORDERED: Kristalose20 GM PO (20:48)
[2024-07-11] MEDS ORDERED: Lactulose 20 GM/30 ML UDC PO ONE (20:50)
[2024-07-11 20:52] VITALS: BP 112/54
== END 2024-07-11 21:06 | disposition home or self-care (01) ==
LOC: ER 18:23
PROVIDERS: Emergency Medicine
DX: N17.9 Acute kidney failure, unspecified (principal); D64.9 Anemia, unspecified; E72.20 Disorder of urea cycle metabolism, unspecified; K76.9 Liver disease, unspecified; E03.9 Hypothyroidism, unspecified; I48.91 Unspecified atrial fibrillation; I11.0 Hypertensive heart disease with heart failure; I50.9 Heart failure, unspecified; F17.220 Nicotine dependence, chewing tobacco, uncomplicated; Z79.899 Other long term (current) drug therapy; Z88.2 Allergy status to sulfonamides; Z88.5 Allergy status to narcotic agent
CPT/HCPCS: 36415; 70450; 71045; 80053; 82140; 83735; 83880; 84484; 85014; 85018; 85025; 85045; 86850; 86900; 86901; 93005; 93010; 99285-25; A9270

== ENCOUNTER 2024-10-17 20:50 | Emergency (ER) | payer OTHER ==
[~2024-10-17] VITALS: Ht 177.8 cm; Wt 122.5 kg
[~2024-10-17 20:50] MED LIST changes: +Kristalose20 GM PO
[2024-10-17] MEDS ORDERED: Ondansetron HCl 2 MG / ML 2ML Vial IV ONE ×2 (21:35→23:05)
[2024-10-17] MEDS ORDERED: NS 1,000 ML IV SCH ×2 (21:40→23:05)
[2024-10-17 22:14] LABS: BASOPHILS ABSOLUTE AUTO 0.03 K/mm3 (0.00-0.23); BASOPHILS PERCENT AUTO 1 % (0-2); EOSINOPHILS ABSOLUTE AUTO 0.03 K/mm3 (0.00-0.68); EOSINOPHILS PERCENT AUTO 1 % (0-6); Hematocrit 30.0 % (37.0-53.0); Hemoglobin 8.7 g/dL (13.5-17.5); IMMATURE GRAN ABSOLUTE AUTO 0.02 K/mm3 (0.00-0.10); IMMATURE GRAN PERCENT AUTO 0 % (0-1); LYMPHOCYTES ABSOLUTE AUTO 0.57 K/mm3 (0.84-5.20); LYMPHOCYTES PERCENT AUTO 11 % (21-46); MONOCYTES ABSOLUTE AUTO 0.66 K/mm3 (0.16-1.47); MONOCYTES PERCENT AUTO 12 % (4-13); Mean Corpuscular HGB Conc 29.0 g/dL (31.5-36.5); Mean Corpuscular Volume 81 fL (80-100); NEUTROPHILS ABSOLUTE AUTO 4.00 K/mm3 (1.96-9.15); NEUTROPHILS PERCENT AUTO 75 % (41-73); NRBC ABSOLUTE 0.00 K/mm3 (0.00-0.02); NRBC Auto 0.0 /100 WBC (0.0-0.2); Platelet Count 206 K/mm3 (150-400); RDW Coefficient Variation 20.4 % (11.7-14.2); RDW Standard Deviation 59.2 fL (35.1-46.3)
[2024-10-17 22:33] LABS: Alanine Aminotransfer (ALT/SGP 27.0 U/L (12-78); Albumin, Blood 2.6 g/dL (3.4-5.0); Albumin/Globulin Ratio 0.5 (0.8-1.8); Anion Gap 7.0 mmol/L (3-11); Aspartate Aminotrans (AST/SGOT 52.0 U/L (12-37); Bilirubin, Total 1.6 mg/dL (0.1-1.0); Blood Urea Nitrogen 11.0 mg/dL (8-24); CO2, Blood 26.0 mmol/L (21-32); Calcium, Blood 7.4 mg/dL (8.5-10.1); Chloride, Blood 104.0 mmol/L (98-108); Creatinine, Blood 1.06 mg/dL (0.60-1.20); Globulin, Blood 5.3 g/dL (2.2-4.0); Glucose, Blood 101.0 mg/dL (70-99); Potassium, Blood 3.1 mmol/L (3.5-5.5); Sodium, Blood 134.0 mmol/L (136-145); Total Protein, Blood 7.9 g/dL (6.4-8.2)
[2024-10-18 01:09] VITALS: BP 112/62
[2024-10-18] MEDS ORDERED: ONDA4ODT MM (01:09)
[2024-10-18] MEDS ORDERED: K-TAB ER20 ME1 PO (01:13)
== END 2024-10-18 01:20 | disposition home or self-care (01) ==
LOC: ER 20:50
PROVIDERS: Student in an Organized Health Care Education/Training Program
DX: D64.9 Anemia, unspecified (principal); R11.2 Nausea with vomiting, unspecified; E87.6 Hypokalemia; E66.9 Obesity, unspecified; I11.0 Hypertensive heart disease with heart failure; I48.91 Unspecified atrial fibrillation; F17.220 Nicotine dependence, chewing tobacco, uncomplicated; I50.9 Heart failure, unspecified; Z88.2 Allergy status to sulfonamides; Z88.8 Allergy status to other drugs, medicaments and biological substances; Z79.01 Long term (current) use of anticoagulants; Z79.899 Other long term (current) drug therapy; Z68.38 Body mass index [BMI] 38.0-38.9, adult
CPT/HCPCS: 80053; 85025; 96374; 99283-25; A9270; J2405; J7030